=== PATIENT | male | born 1970 | race African-American/Black ===

== ENCOUNTER 2018-10-30 22:56 | Inpatient (IN) ==
[2018-10-30 23:19] LABS: Basophils # 0.1 10*3/uL (0.0-0.2); Basophils % 0.4 % (0.0-0.8); Hematocrit 47.2 VOL% (42.0-52.0); Hemoglobin 15.2 GM/DL (14.0-18.0); Immature Granulocytes % 0.7 %; Immature Granulocytes Absolute 0.13 #; Lymphocytes # 0.5 10*3/uL (1.4-4.0); Lymphocytes % 2.8 % (21.2-54.2); Mean Corpuscular HGB Conc 32.2 GM/DL (32-36); Mean Corpuscular Volume 91.3 FL (87-102); Mean Platelet Volume 10.2 FL (9.6-12.0); Monocytes % 5.6 % (1.7-12.7); Neutrophils % 90.5 % (38.7-73.9); Platelet Count 285 T/CUMM (130-400); Red Blood Count 5.17 MC/CUMM (3.8-5.5); Red Cell Distribution Width 13.7 % (9.3-17.3); White Blood Count 18.1 T/CUMM (4-12)
[2018-10-30] MEDS ORDERED: LEVOFLOXACIN INJ 750 MG in PREMIX 1 EACH IV STA (23:28)
[2018-10-30] MEDS ORDERED: METOCLOPRAMIDE 10 MG/2 ML VIAL IV STA (23:28)
[2018-10-30] MEDS ORDERED: ONDANSETRON 4 MG/2 ML VIAL IV STA (23:28)
[2018-10-30] MEDS ORDERED: SODIUM CHLORIDE 0.9% 2,000 ML IV STA (23:28)
[2018-10-30] MEDS ORDERED: INSULIN REGULAR 100 UNIT/ML IV ONE (23:32)
[2018-10-30 23:39] LABS: Alanine Aminotransferase 44 U/L (16-61); Albumin 4.4 G/DL (3.4-5.0); Alkaline Phosphatase 124 U/L (45-117); Aspartate Amino Transferase 24 U/L (0-37); Blood Urea Nitrogen 28 MG/DL (7-18); Calcium 8.5 MG/DL (8.5-10.1); Osmolality,Calculated 289.8 MOS/KG (273-304); Total Protein 9.2 G/DL (6.4-8.3)
[2018-10-30 23:42] LABS: Band Neutrophils 2 % (0-10); Lymphocytes 7 % (20-55); Segmented Neutrophils 84 % (50-85); Total Cells Counted 100
[2018-10-30 23:43] LABS: Anisocytosis 1+; Glucose 773 MG/DL (74-106); Platelet Estimate Adequate
[2018-10-30] MEDS ORDERED: ALBUTEROL NEB SOLN 5 MG/ML 20 ML/BOTTLE CONT NEB STA (23:50)
[2018-10-30] MEDS ORDERED: CALCIUM CHLORIDE 1,000 MG/10 ML SYRINGE IV STA (23:50)
[2018-10-30 23:55] LABS: Apearance,Urine CLEAR (Clear); Bacteria,Urine Occasional /HPF (Few); Bilirubin,Urine Negative (Negative); Blood, Urine Moderate mg/dL (Negative); Glucose,Urine (UA) >=500 mg/dL (Negative); Ketones,Urine 80 mg/dL (Negative); Mucus,Urine Occasional /LPF (Occasional); Nitrite,Urine Negative (Negative); Protein,Urine Negative; RBC,Urine 1 /HPF (0-4); Squamous Epithelial Cell,Urine Occasional /HPF (0-10); Urine Color Colorless (Yellow); Urine Specific Gravity 1.008 (1.001-1.035); Urine Urobilinogen < 2.0 EU/DL (0.2-1.0)
[2018-10-31] LABS: Barbiturates Screen,Urine Negative (Negative); Benzodiazepines Screen,Urine Negative (Negative); Cannabinoid Screen,Urine Negative (Negative); Opiate Screen,Urine Negative (Negative); Phencyclidine Screen,Urine Negative (Negative)
[2018-10-31] LABS: Amylase 24 U/L (25-115); Troponin I < 0.015 NG/ML (0.00-0.045)
[2018-10-31] MEDS ORDERED: SODIUM PHOSPHATE INJ 22.7 MMOL in SODIUM CHLORIDE 0.9% 250 ML IV PRN (00:10)
[2018-10-31] MEDS ORDERED: DEXTROSE 50% 25 GM/50 ML VIAL IV PRN ×2 (00:10)
[2018-10-31] MEDS ORDERED: POTASSIUM CHLORIDE RIDER 10 MEQ in PREMIX 1 EACH IV PRN (00:10)
[2018-10-31] MEDS ORDERED: INSULIN REGULAR 100 UNIT/ML IV ONE ×4 (00:10→18:18)
[2018-10-31] MEDS ORDERED: MAGNESIUM SULF RIDER 2 GM in PREMIX 1 EACH IV PRN (00:10)
[2018-10-31] MEDS ORDERED: SODIUM CHLORIDE 0.9% 1,000 ML IV ONE (00:10)
[2018-10-31] MEDS ORDERED: MAGNESIUM SULF RIDER 4 GM in PREMIX 1 EACH IV PRN (00:10)
[2018-10-31] MEDS ORDERED: LORazepam 2 MG/1 ML VIAL IV PRN (00:13)
[2018-10-31] MEDS ORDERED: SODIUM BICARB INJ 50 MEQ in DEXTROSE 5% 1,000 ML IV SCH (00:30)
[2018-10-31] MEDS ORDERED: INSULIN REGULAR DRIP 100 ML IV SCH (01:00)
[2018-10-31] MEDS: SODIUM CHLORIDE 0.9% 1,000 ML IV SCH ×3 (02:15→04:43)
[2018-10-31 02:16] LABS: Allen Test Positive; Pt O2 Delivery Device Room Air
[2018-10-31 02:17] LABS: ABG Base Excess -28.4 MMOL/L (-2.5-2.5); ABG HCO3 6.5 MMOL/L (20-26); ABG Oxygen Saturation 97.9 % (95-100)
[2018-10-31 02:19] LABS: ABG TCO2 2.6 MMOL/L (23-27)
[2018-10-31 02:24] LABS: ABG PCO2 10.3 MM HG (35-48); ABG PH 7.048 (7.35-7.45)
[2018-10-31 03:02] LABS: Calcium 8.7 MG/DL (8.5-10.1); Osmolality,Calculated 290.9 MOS/KG (273-304)
[2018-10-31 03:30] VITALS: BP 133/79
[2018-10-31 04:11] LABS: Basophils % 0.1 % (0.0-0.8); Hematocrit 44.7 VOL% (42.0-52.0); Hemoglobin 14.3 GM/DL (14.0-18.0); Immature Granulocytes % 0.5 %; Immature Granulocytes Absolute 0.09 #; Lymphocytes # 0.8 10*3/uL (1.4-4.0); Lymphocytes % 4.9 % (21.2-54.2); Mean Corpuscular Volume 90.7 FL (87-102); Mean Platelet Volume 10.4 FL (9.6-12.0); Monocytes % 3.3 % (1.7-12.7); Neutrophils % 91.2 % (38.7-73.9); Platelet Count 284 T/CUMM (130-400); Red Blood Count 4.93 MC/CUMM (3.8-5.5); Red Cell Distribution Width 13.6 % (9.3-17.3); White Blood Count 17.1 T/CUMM (4-12)
[2018-10-31 04:36] LABS: Calcium 8.6 MG/DL (8.5-10.1); Osmolality,Calculated 296.5 MOS/KG (273-304)
[2018-10-31 04:51] LABS: Band Neutrophils 2 % (0-10); Hypochromasia 1+; Lymphocytes 3 % (20-55); Platelet Estimate Adequate; Segmented Neutrophils 90 % (50-85); Total Cells Counted 100
[2018-10-31] MEDS ORDERED: SODIUM BICARBONATE 50 MEQ/50 ML VIAL IV ONE (05:05)
[2018-10-31] MEDS ORDERED: SODIUM CHLORIDE 0.9% 1,000 ML IV SCH (05:10)
[2018-10-31 08:18] LABS: Calcium 7.7 MG/DL (8.5-10.1); Osmolality,Calculated 283.4 MOS/KG (273-304)
[2018-10-31] MEDS ORDERED: SODIUM CHLOR 0.9% KCL 20 MEQ 20 MEQ/1,000 ML BAG IV SCH (09:00)
[2018-10-31 09:11] LABS: Pt O2 Delivery Device Room Air
[2018-10-31 09:12] LABS: ABG HCO3 15.9 MMOL/L (20-26); ABG Oxygen Saturation 97.6 % (95-100); ABG PCO2 28.9 MM HG (35-48); ABG PH 7.301 (7.35-7.45); ABG PO2 88.8 MM HG (80-95); ABG TCO2 12.7 MMOL/L (23-27)
[2018-10-31] MEDS: SODIUM CHLORIDE 0.45% 1,000 ML IV SCH ×4 (09:34→18:22)
[2018-10-31 12:54] LABS: Calcium 7.8 MG/DL (8.5-10.1); Osmolality,Calculated 282.2 MOS/KG (273-304)
[2018-10-31] MEDS ORDERED: SODIUM CHLORIDE 0.45% 1,000 ML IV SCH (17:10)
[2018-10-31 18:10] LABS: Calcium 7.8 MG/DL (8.5-10.1); Osmolality,Calculated 281.5 MOS/KG (273-304)
== END 2018-10-31 19:49 | disposition left against medical advice (07) | DRG 638 ==
LOC: EDUNIT# → EDBD → N.ED 22:56 → N.EDINP 10-31 00:10 → SUATTDRO 10-31 00:10 → N.CC 10-31 00:26
PROVIDERS: ADMIT Internal Medicine Nephrology; ATTEND Phlebology